=== PATIENT | female | born 1960 | race Caucasian/White ===

== ENCOUNTER → 2023-08-30 08:14 | Outpatient (REF) | payer MEDICARE, SELFPAY | LOC: WDC 08:14 | PROVIDERS: ATTENDING PHYSICIAN Obstetrics & Gynecology Gynecology; FAMILY PHYSICIAN Internal Medicine | DX: Z12.31 Encounter for screening mammogram for malignant neoplasm of breast (principal) | CPT/HCPCS: 77063; 77067 ==

== ENCOUNTER → 2023-11-22 07:53 | Outpatient (REF) | payer MEDICARE, SELFPAY | LOC: RAD 07:53 | PROVIDERS: ATTENDING PHYSICIAN Internal Medicine Rheumatology; FAMILY PHYSICIAN Internal Medicine | DX: M81.0 Age-related osteoporosis without current pathological fracture (principal) | CPT/HCPCS: 77080; 77081 ==

== ENCOUNTER → 2023-12-15 14:54 | Outpatient (REF) | payer MEDICARE, SELFPAY | LOC: WDC 14:54 | PROVIDERS: ATTENDING PHYSICIAN Obstetrics & Gynecology Gynecology; FAMILY PHYSICIAN Internal Medicine | DX: R92.2 Inconclusive mammogram (principal) | CPT/HCPCS: 76641 ==

== ENCOUNTER → 2024-03-29 13:04 | Outpatient (REF) | payer MEDICARE, SELFPAY | LOC: HWEVLT 13:04 | PROVIDERS: ATTENDING PHYSICIAN Radiology Vascular & Interventional Radiology | DX: I83.893 Varicose veins of bilateral lower extremities with other complications (principal) | CPT/HCPCS: 93970 ==

== ENCOUNTER 2024-06-14 06:29 | Day surgery (SDC) | payer MEDICARE, SELFPAY | END 2024-06-14 09:33 | disposition home or self-care (01) | LOC: GI 06:29 | PROVIDERS: ATTENDING PHYSICIAN Internal Medicine Gastroenterology | DX: D12.3 Benign neoplasm of transverse colon (principal); D12.4 Benign neoplasm of descending colon; K62.1 Rectal polyp; Z86.0101 Personal history of adenomatous and serrated colon polyps; K57.30 Diverticulosis of large intestine without perforation or abscess without bleeding | CPT/HCPCS: 45385; 45380; 88305 ==

== ENCOUNTER → 2024-09-03 08:15 | Outpatient (REF) | payer MEDICARE, SELFPAY | LOC: WDC 08:15 | PROVIDERS: ATTENDING PHYSICIAN Obstetrics & Gynecology Gynecology; FAMILY PHYSICIAN Internal Medicine | DX: Z12.31 Encounter for screening mammogram for malignant neoplasm of breast (principal) | CPT/HCPCS: 77063; 77067 ==

== ENCOUNTER 2024-09-11 06:24 | Outpatient (RCR) | payer MEDICARE, SELFPAY | END 2024-09-11 23:59 | disposition home or self-care (01) | LOC: RPT 06:24 | PROVIDERS: ATTENDING PHYSICIAN Specialist; FAMILY PHYSICIAN Internal Medicine | DX: M75.42 Impingement syndrome of left shoulder (principal); Z73.6 Limitation of activities due to disability; M62.81 Muscle weakness (generalized) | CPT/HCPCS: 97010; 97110; 97140; 97162 ==

== ENCOUNTER 2024-10-05 06:26 | Outpatient (RCR) | payer MEDICARE, SELFPAY | END 2024-10-05 09:27 | disposition home or self-care (01) | LOC: RPT 06:26 | PROVIDERS: ATTENDING PHYSICIAN Specialist; FAMILY PHYSICIAN Internal Medicine | DX: M75.42 Impingement syndrome of left shoulder (principal); Z73.6 Limitation of activities due to disability; M62.81 Muscle weakness (generalized) | CPT/HCPCS: 97010; 97110; 97140 ==